=== PATIENT | female | born 1990 | race Caucasian/White ===

== ENCOUNTER 2017-01-25 09:00 | Inpatient (IN) | payer OTHER ==
[~2017-01-25] VITALS: Ht 152.4 cm; Wt 98.1 kg
[~2017-01-25 09:00] MED LIST: FERR-55 PO; NO MEDS; PREN-6 PO
[2017-01-25 09:40] VITALS: Ht 152.4 cm; Wt 98.1 kg
[2017-01-25] MEDS ORDERED: MISOPROSTOL 200 MCG TAB PR PRN (10:00)
[2017-01-25] MEDS ORDERED: CARBOPROST 250 MCG INJ IM PRN (10:00)
[2017-01-25] MEDS ORDERED: LACTATED RINGER'S 1,000 ML IV PRN (10:00)
[2017-01-25] MEDS ORDERED: METHYLERGONOVINE 0.2 MG INJ IM PRN (10:00)
[2017-01-25] MEDS ORDERED: OXYTOCIN 30 UNITS/LR 500 ML IV SCH ×3 (10:00→10:30)
[2017-01-25] MEDS ORDERED: IBUPROFEN 600 MG TAB PO PRN (10:00)
[2017-01-25] MEDS ORDERED: OXYTOCIN 30 UNITS/LR 500 ML IV PRN (10:00)
[2017-01-25] MEDS ORDERED: LIDOCAINE 1% (MPF) 30 ML INJ INJ PRN (10:00)
[2017-01-25] MEDS: LACTATED RINGER'S 1,000 ML IV SCH ×2 (10:16→17:15)
[2017-01-25 10:41] LABS: ADD SCAN DIFF NO
[2017-01-25 10:52] LABS: BASOPHILS % 0.1 % (0.0-2.0); EOSINOPHILS % 0.1 % (0.0-7.0); HEMATOCRIT 38.6 % (37.0-47.0); HEMOGLOBIN 12.9 g/dl (12.0-16.0); LYMPHOCYTES # 1.6 10^3/ul (0.8-2.9); LYMPHOCYTES % 16.8 % (15.0-51.0); MEAN CORPUSCULAR HEMOGLOBIN 30.6 pg (29.0-33.0); MEAN CORPUSCULAR HGB CONC 33.4 g/dl (32.0-37.0); MEAN CORPUSCULAR VOLUME 91.7 fl (82.0-101.0); MEAN PLATELET VOLUME 10.1 fl (7.4-10.4); MONOCYTE # 0.5 10^3/ul (0.3-0.9); MONOCYTES % 5.8 % (0.0-11.0); NEUTROPHIL # 7.1 10^3/ul (1.6-7.5); NEUTROPHILS % 76.7 % (39.0-77.0); PLATELET COUNT 203 10^3/UL (140-415); RED BLOOD COUNT 4.21 10^6/ul (4.20-5.40); RED CELL DISTRIBUTION WIDTH 13.1 % (11.5-14.5); WHITE BLOOD COUNT 9.3 10^3/ul (4.8-10.8)
[2017-01-25 10:59] LABS: INR 0.98
[2017-01-25 11:00] LABS: PARTIAL THROMBOPLASTIN TIME 30.6 Sec (25.0-35.0)
[2017-01-25 17:48] VITALS: BP 117/69; PULSE 101; RESP 18
[2017-01-25] MEDS: BUTORPHANOL 2 MG INJ IV PRN ×2 (18:25→21:59)
[2017-01-26] MEDS ORDERED: LACTATED RINGER'S 1,000 ML IV* SCH (00:04)
--- NOTE | 2017-01-26 00:07 | HP ---
Date/Time of Note Date/Time of Note DATE: 01/26/17 TIME: 00:06 OB - History Hx of Present Free Text/Dictation 26 YO with 40.1 weeks who desires IOL. she is . she was admitted and given Pitocin. she progressed to 10 cm. s/p Care: Good Care Ultrasounds: Normal mid trimester US Obstetrical Complications: None Medical Complications: None Past Family/Social History * Past Medical, Surgical, Family and Obstetric Histories reviewed from chart. OB Admission Exam Vital Signs Vital Signs Vital Signs Date Time Temp Pulse Resp B/P Pulse Ox O2 Delivery O2 Flow Rate FiO2 01/25/17 17:48 98.1 101 18 117/69 98 Room Air Physical Exam HEENT: WNL Heart: Rhythm Normal Lungs: Clear, Equal Abdomen: WNL Extremities: Normal Reflexes: Normal Last 72 hours Lab Results CBC & BMP 01/25/17 10:10 OB Assessment/Plan Plan: Expectant Management MANUEL WINTERS MD Jan 26, 2017 00:07
--- NOTE | 2017-01-26 00:10 | LDN ---
Date/Time of Note Date/Time of Note DATE: 01/26/17 TIME: 00:07 Delivery Summary with IUP at 40.1 weeks s/p of viable male . no lacerations Placenta Delivered: Spontaneously Meconium: none Episiotomy: No Anesthesia type: None Estimated blood loss: 300 Sponge & Needle done & correct: Yes All needle counts correct: Yes Any foreign bodies felt in the: No Problems: Delivery Information Sex Sex: male Apgars 1 Minute: 8 5 Minute: 9 Suctioning Nose & mouth suctioned at mary: No Delee suction performed: No Umbilical Cord Umbilical cord with: 3 Vessels Cord presentations: no nuchal cord Cord Blood was obtained: Yes Mother & Baby Disposition Disposition Mom & Baby to Maternity; Good: Yes MANUEL WINTERS MD Jan 26, 2017 00:10
[2017-01-26] MEDS ORDERED: ONDANSETRON 4 MG INJ IV PRN (00:30)
[2017-01-26] MEDS ORDERED: ACETAMINOPHEN/CODEINE #3 TAB PO PRN ×2 (00:30)
[2017-01-26] MEDS ORDERED: MISOPROSTOL 200 MCG TAB PR PRN (00:30)
[2017-01-26] MEDS ORDERED: MAGNESIUM HYDROXIDE 30ML CUP PO PRN (00:30)
[2017-01-26] MEDS ORDERED: CARBOPROST 250 MCG INJ IM PRN (00:30)
[2017-01-26] MEDS ORDERED: WITCH HAZEL/GLYCERIN PAD PR PRN (00:30)
[2017-01-26] MEDS ORDERED: DIPHENHYDRAMINE 50 MG INJ IV PRN (00:30)
[2017-01-26] MEDS ORDERED: DIBUCAINE 1% 30 GM OINT PR PRN (00:30)
[2017-01-26] MEDS ORDERED: NA PHOSPHATE/BIPHOS 133 ML ENEMA PR PRN (00:30)
[2017-01-26] MEDS ORDERED: OXYTOCIN 30 UNITS/LR 500 ML IV PRN (00:30)
[2017-01-26] MEDS ORDERED: LANOLIN 7 GM TUBE TOP PRN (00:30)
[2017-01-26] MEDS ORDERED: DIPHENHYDRAMINE 25 MG CAP PO PRN (00:30)
[2017-01-26] MEDS ORDERED: SENNA/DOCUSATE NA (8.6MG/50MG) TAB PO PRN (00:30)
[2017-01-26] MEDS ORDERED: BENZOCAINE 20% 56 ML SPRAY TOP PRN (00:30)
[2017-01-26] MEDS ORDERED: ONDANSETRON 4 MG TAB PO PRN (00:30)
[2017-01-26] MEDS: LACTATED RINGER'S 1,000 ML IV SCH (01:32)
[2017-01-26 02:00] VITALS: BP 95/55; PULSE 82; RESP 18
[2017-01-26 03:00] VITALS: BP 99/52; PULSE 95; RESP 18
[2017-01-26] MEDS: IBUPROFEN 600 MG TAB PO SCH ×3 (06:33→17:29)
[2017-01-26 08:00] VITALS: BP 108/61; PULSE 73; RESP 18
[2017-01-26] MEDS: SENNA/DOCUSATE NA (8.6MG/50MG) TAB PO SCH ×2 (09:25→21:16)
[2017-01-26 12:22] VITALS: BP 109/60; PULSE 78; RESP 20
[2017-01-26 15:54] VITALS: BP 100/63; PULSE 97; RESP 18
[2017-01-26 20:00] VITALS: BP 115/65; PULSE 100; RESP 18
[2017-01-27] MEDS: IBUPROFEN 600 MG TAB PO SCH ×3 (01:13→12:29)
[2017-01-27 04:25] VITALS: BP 105/55; PULSE 100; RESP 18
[2017-01-27 07:35] LABS: ADD SCAN DIFF NO
[2017-01-27 07:38] LABS: BASOPHILS % 0.2 % (0.0-2.0); EOSINOPHILS # 0.1 10^3/ul (0.0-0.5); EOSINOPHILS % 1.1 % (0.0-7.0); HEMATOCRIT 32.5 % (37.0-47.0); HEMOGLOBIN 10.7 g/dl (12.0-16.0); LYMPHOCYTES # 2.4 10^3/ul (0.8-2.9); LYMPHOCYTES % 21.6 % (15.0-51.0); MEAN CORPUSCULAR HEMOGLOBIN 31.1 pg (29.0-33.0); MEAN CORPUSCULAR HGB CONC 32.9 g/dl (32.0-37.0); MEAN CORPUSCULAR VOLUME 94.5 fl (82.0-101.0); MEAN PLATELET VOLUME 10.2 fl (7.4-10.4); MONOCYTE # 0.6 10^3/ul (0.3-0.9); MONOCYTES % 5.5 % (0.0-11.0); NEUTROPHIL # 7.9 10^3/ul (1.6-7.5); NEUTROPHILS % 71.1 % (39.0-77.0); PLATELET COUNT 166 10^3/UL (140-415); RED BLOOD COUNT 3.44 10^6/ul (4.20-5.40); RED CELL DISTRIBUTION WIDTH 13.2 % (11.5-14.5); WHITE BLOOD COUNT 11.1 10^3/ul (4.8-10.8)
[2017-01-27 08:20] VITALS: BP 97/56; PULSE 91; RESP 19
[2017-01-27] MEDS: SENNA/DOCUSATE NA (8.6MG/50MG) TAB PO SCH (09:33)
--- NOTE | 2017-01-27 09:56 | PN ---
Date/Time of Note Date/Time of Note DATE: 01/27/17 TIME: 09:52 OB Subjective Subjective Subjective Status post day 2 Patient is doing well and has no complaints OB Objective HEENT: WNL Heart: Rhythm Normal Lungs: Clear Abdomen: WNL (Uterus firm) OB Assessment/Plan Other Assessment: Day #2 Patient stable and doing well DC home today and follow-up with Dr. WINTERS in 2 & 6 weeks SHERIDAN SWARTZ MD Jan 27, 2017 09:56
--- NOTE | 2017-01-27 09:59 | DS ---
Date/Time of Note Date/Time of Note DATE: 01/27/17 TIME: 09:56 Obstetrical Discharge Record Final Diagnosis Final Diagnosis: Term delivered Vaginal Delivery Obstetrical Delivery: Spontaneous Condition on Discharge Physical Assessment Last Vitals: Stable Voiding: Yes Breast: Soft, non-tender Fundus: Firm Patient Condition: Good SHERIDAN SWARTZ MD Jan 27, 2017 09:59
[2017-01-27] MEDS ORDERED: DIPHTH/TET/ACEL PERTUSS (ADULT) 0.5 ML VIAL IM* ONE (12:00)
[2017-01-28] MEDS ORDERED: VARICELLA VACCINE LIVE/PF 1,350 UNIT/0.5 ML ML SC* ONE (09:00)
[2017-01-28] MEDS ORDERED: MEASLES,MUMPS,RUBELLA VACCINE INJ SC* ONE (09:00)
== END 2017-01-27 13:30 | disposition home or self-care (01) | DRG 775 ==
LOC: L-D 09:30 → PP1 01-26 02:02
PROVIDERS: ADMIT Specialist; ATTEND Specialist
PROC: 3E033VJ Introduction of Other Hormone into Peripheral Vein, Percutaneous Approach (ICD-10-PCS; 2017-01-25)
PROC: 10E0XZZ Delivery of Products of Conception, External Approach (ICD-10-PCS; principal; 2017-01-26)
PROC: 3E0234Z Introduction of Serum, Toxoid and Vaccine into Muscle, Percutaneous Approach (ICD-10-PCS; 2017-01-27)
DX: O48.0 Post-term pregnancy (principal); Z3A.40 40 weeks gestation of pregnancy; Z37.0 Single live birth; Z23 Encounter for immunization
CPT/HCPCS: 85025; 85610; 85730; 86592; 86900; 86901; 87340; 90715; J2590; J7120